=== PATIENT | female | born 1950 | race African-American/Black ===

== ENCOUNTER 2022-04-06 20:50 | Emergency (ER) | payer OTHER ==
[2022-04-06 21:07] VITALS: BP 133/81; PULSE 90; RESP 20; TEMP 98.3; BMI 33.2
[2022-04-06] MEDS ORDERED: ACETAMINOPHEN 500 MG TABLET (FP) PO ONE (21:19)
[2022-04-06] MEDS ORDERED: ACETAMINOPHEN 325 MG TABLET (FP) ONE (21:23)
== END 2022-04-06 23:38 | disposition home or self-care (01) ==
LOC: JER 20:50
DX: M79.606 Pain in leg, unspecified (principal); M25.579 Pain in unspecified ankle and joints of unspecified foot; S82.832A Other fracture of upper and lower end of left fibula, initial encounter for closed fracture
CPT/HCPCS: 73562-TC-LT-FY; 73590-TC-LT-FY; 73610-TC-LT-FY; 73630-TC-LT; 99284-25